=== PATIENT | male | born 1965 | race Caucasian/White ===

== ENCOUNTER 2020-02-29 13:09 | Inpatient (IN) | payer OTHER, SELFPAY ==
[~2020-02-29] VITALS: Ht 170.2 cm; Wt 91.2 kg
[2020-02-29 13:28] VITALS: Ht 170.2 cm; Wt 91.2 kg
--- NOTE | 2020-02-29 13:35 | NUR ---
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 AND CONGESTION. PT WAS COVID+. FEELING OF SOB AND DISUTUARATED AGAIN. PT WAS A/OX4, SPEAKS FULL SENTENCES, FOLLOWS COMMAND, DENIES PRESTON AND DIZZINES. PT AMBULATES AROUND IN STEADY GAIT.
[2020-02-29 14:48] LABS: CALCIUM 9.2 mg/dL (8.5-10.1); CARBON DIOXIDE 22.5 mmol/L (21-32); CHLORIDE SERUM 98 mmol/L (98-107); CREATININE SERUM 0.8 mg/dL (0.7-1.3); GFR1 > 60 mL/min; GLUCOSE SERUM 139 mg/dL (74-106); POTASSIUM SERUM 3.9 mmol/L (3.5-5.1); SODIUM SERUM 132 mmol/L (136-145)
[2020-02-29 14:53] LABS: ALKALINE PHOSPHATASE 89 U/L (46-116); ALT/SGPT 137 U/L (16-63); AST/SGOT 106 U/L (15-37); BILIRUBIN TOTAL 1.28 mg/dL (0.20-1.00)
[2020-02-29 14:55] LABS: ALBUMIN 2.6 g/dL (3.4-5.0); C REACTIVE PROTEIN 15.4 mg/dL (<=0.9); TOTAL PROTEIN, SERUM 8.5 g/dL (6.4-8.2)
[2020-02-29 15:07] LABS: BASOPHIL % 0.6 % (0-2); PLATELET COUNT 340 x10^3mcL (130-400); RED CELL DISTRIBUTION WIDTH 14.4 % (11.5-14.5)
--- NOTE | 2020-02-29 17:04 | NUR ---
BLOOD CULTURE DONE. ANTIBIOTICS STARTED.
--- NOTE | 2020-02-29 17:24 | NUR ---
PT IS VOMITTING. MD WAS NOTIFIED. ZOFRAN WAS ORDERED AND GIVEN IVP.
--- NOTE | 2020-02-29 19:03 | NUR ---
DR. GISELLE VYAS CALLED AND ADMITED PT TO TELE.
--- NOTE | 2020-02-29 19:06 | NUR ---
REPORT RECEIVED FROM PRISON TEACHER FOR CONTINUITY OF CARE. PATIENT IN STABLE CONDITION. NO DISTRESS NOTED.
--- NOTE | 2020-02-29 20:29 | NUR ---
PATIENT C/O NECK PAIN 09/13. WILL LET KNOW.
[2020-02-29] MEDS ORDERED: DULERA1 AR2 IH (21:12)
[2020-02-29 22:17] VITALS: BP 124/95
[2020-02-29 22:27] VITALS: BP 123/87
--- NOTE | 2020-02-29 22:30 | NUR ---
REC'D PT FROM ED VIA ETHEL ACCOMPANIED BY RN. PT ADM WITH CC OF SOB. CURRENTLY REPORT SOB ONLY UPON AMBULATION. DENIES RESP DISTRESS OR SOB. BREATHING EVEN/UNLABORED ON RA, SPO2 93%. PROD COUGH WITH MOD CLEAR SPUTUM. TELE 3. DENIES CP, DIZZINESS, OR PALPITATIONS. NO EDEMA NOTED. ABD SOFT/ROUND. C/O NAUSEA, NO EMESIS. VOIDING FREELY. AMBULATORY. SKIN INTACT. IV TO RAC, SITE WNL. GUARDS X2 AT BEDSIDE. PT REPORTS HEART BURN- TAKES OMEPRAZOLE FOR IT. ORIENTED TO DEVICES AND SURROUNDINGS. REPORT GIVEN TO MIGUEL A EDWARDS.
--- NOTE | 2020-03-01 05:27 | NUR ---
PATIENT SLEPT WELL AT NIGHT.PATIENT ALERT AND ORIENTED.SKIN WARM AND DRY TO TOUCH.RESPIRATION EVEN AND UNLABORED,NO RESPIRATORY DISTRESS.LUNGS DIMINISHED UPON AUSCULTATION.DENIES SOB BUT WITH EPISODES OF ABDOMINAL DISCOMFORT.PATIENT KEPT NPO SINCE MIDNIGHT FOR ABDOMINAL ULTRASOUND THIS MORNING,PATIENT VERBSLIZED UNDERSTANDING.PATIENT RESTING COMFORTABLY IN BED AT THIS TIME.
[2020-03-01 06:25] VITALS: BP 138/84
[2020-03-01 07:03] LABS: BASOPHIL % 0.5 % (0-2); PLATELET COUNT 248 x10^3mcL (130-400); RED CELL DISTRIBUTION WIDTH 14.5 % (11.5-14.5)
[2020-03-01 07:11] LABS: CALCIUM 8.8 mg/dL (8.5-10.1); CARBON DIOXIDE 27.5 mmol/L (21-32); CHLORIDE SERUM 99 mmol/L (98-107); CREATININE SERUM 0.7 mg/dL (0.7-1.3); GFR1 > 60 mL/min; GLUCOSE SERUM 92 mg/dL (74-106); POTASSIUM SERUM 3.8 mmol/L (3.5-5.1); SODIUM SERUM 134 mmol/L (136-145)
--- NOTE | 2020-03-01 07:25 | NUR ---
RECEIVED REPORT FROM CHUCKING MACHINE OPERATOR RN. PT IS AOX4, SITTING UP IN BED AND WATCHING TV. PT IS COMPLAINING THAT HE IS HUNGRY BUT EXPLAINED TO HIM THAT HE WILL HAVE FOOD AFTER THE ABD US IS DONE. NO C/O PAIN AT THIS TIME. PT IS ON RA AND SATING AT 93%. NO ACUTE DISTRESS NOTED. WILL ASSESS AND CONTINUE TO MONITOR THROUGHOUT THE SHIFT.
[2020-03-01 08:53] VITALS: BP 144/90
[2020-03-01 12:15] VITALS: BP 121/75
--- NOTE | 2020-03-01 15:20 | NUR ---
RECEIVED PT. FROM ANGELA (AGENCY RN) AT THIS TIME. PT. IS A/A/O X3. NO SOB, NO N/V NOTED. PT. DENIES ANY PAIN AT THIS TIME. CIM OFFICERS X2 SITTING AT THE DOOR WAY. IV SITE NOTED TO Grace DAILEY. PT. IS ON DROPLET ISOLATION FOR RULING OUT COVID-19. BED IN LOW POS., CALL LIGHT WITHIN REACH. SIDE RAILS UP X3.
[2020-03-01 17:32] VITALS: BP 133/78
--- NOTE | 2020-03-01 18:06 | NUR ---
NEW IV SITE RESTARTED AT L FA WITH GAUGE #20 DUE TO PT. C/O PAIN AT OLD IV SITE.
--- NOTE | 2020-03-01 18:45 | NUR ---
PT. IS BEING TRANSFERRED TO ROOM 201B AT THIS TIME. DROPLET ISOLATION DISCONTINUED PER DR. MONTILLA'S ORDER. CIM OFFICER AT BEDSIDE.
--- NOTE | 2020-03-01 19:30 | NUR ---
PATIENT RECEIVED. PATIENT IS RESTING IN BED. PATIENT IS CIM. NO SIGN OD RESP DISTRESS. O2 SAT 96% ON ROOM AIR. C/O PAIN 6/10 ACHY IN HIS NECK (SEE eMAR FOR PAIN ADMINISTRATION). PATIENT HAS GENERALIZED WEAKNESS. ACTIVE BOWEL SOUNDS. BED IN LOW POSITION AND CALL LIGHT WITHIN REACH. WILL REASSESS PAIN.
--- NOTE | 2020-03-01 19:45 | NUR ---
PATIENT C/O 6/10 ACHY NECK PAIN AND ADMINISTER NORCO 5/325. NO RESP DISTRESS NOTED. PATIENT IS RESTING IN BED. CMI OFFICERSX2 BY THE DOOR WAY.
[2020-03-01 20:27] VITALS: BP 120/72
--- NOTE | 2020-03-01 20:45 | NUR ---
PATIENT PAIN DECREASED /10. NO RESP DISTRESS IS NOTED. PATIENT IS RESTING IN BED. BED IN LOW POSITION AND CALL LIGHT WITHIN REACH.
--- NOTE | 2020-03-02 01:19 | NUR ---
PATIENT IS RESTING IN BED. DENIES SOB. DENIES CHEST PAIN. C/O ACHY PAIN AT NECK ADMINISTERED NORCO . O2 SAT 95% ON ROOM AIR. BED IN LOW POSITION AND CALL LIGHT WITHIN REACH. CIM OFFICERSX2 SITTING AT DOOR WAY. WILL REASSESS PAIN.
--- NOTE | 2020-03-02 02:09 | NUR ---
PT IS RESTING IN BED. NO SIGN OD RESP DISTRESS. NO FACIAL GRIMACING NOTED. CIM OFFICERSX1 SITTING AT DOOR WAY. CALL LIGHT WITHIN REACH AND BED IN LOW POSITION.
[2020-03-02 05:33] VITALS: BP 139/94
--- NOTE | 2020-03-02 05:57 | NUR ---
PATIENT IS RESTING IN BED CIM OFFICERX2 BY DOOR WAY. PATIENT EYES OPEN. NO SIGN OF DISTRESS. O2 SAT 94% ON ROOM AIR. PATIENT DENIES PAIN. PATIENT DENIES CHEST PAIN AND SOB. DENIES N/V/D. HEART RHTTHM IS NSR. BED IN LOW POSITION AND CALL LIGHT WITHIN REACH. WILL ENDOURS CARE TO AM NURSE.
[2020-03-02 06:57] LABS: BASOPHIL % 0.5 % (0-2); PLATELET COUNT 247 x10^3mcL (130-400)
[2020-03-02 07:20] LABS: CALCIUM 9.7 mg/dL (8.5-10.1); CARBON DIOXIDE 29.6 mmol/L (21-32); CHLORIDE SERUM 100 mmol/L (98-107); CREATININE SERUM 0.9 mg/dL (0.7-1.3); GFR1 > 60 mL/min; GLUCOSE SERUM 83 mg/dL (74-106); POTASSIUM SERUM 5.3 mmol/L (3.5-5.1); RED CELL DISTRIBUTION WIDTH 14.6 % (11.5-14.5); SODIUM SERUM 135 mmol/L (136-145)
--- NOTE | 2020-03-02 07:36 | NUR ---
RECIEVED PATIENT WITH BREATHING EVEN, UNLABORED, AND NO ACUTE RESP DISTRESS NOTED. ALERT AND ORIENTED, FOLLOW COMMANDS. TELE #3. AT ROOM AIR IV ACCESS TO LFA SALINE LOCK PATENT. DENIES PAIN AT THIS TIME. CALL LIGHT WITHIN REACH, BED AT LOWEST POSITION. WILL CONTINUE TO MONITOR
[2020-03-02 08:41] VITALS: BP 140/94
[2020-03-02 12:14] VITALS: BP 118/84
--- NOTE | 2020-03-02 12:14 | NUR ---
PT C/O NECK PAIN 09/13, NORCO GIVEN, AND REASSESS AT 1130 PAIN IMPROVE. RESTING IN BED. BREATHING EVEN, UNLABORED, NO ACUTE RESP DISTRESS NOTED. CALL LIGHT WITHIN REACH, BED AT LOWEST POSITION, WILL CONTINUE TO MONITOR.
[2020-03-02 16:59] VITALS: BP 123/73
--- NOTE | 2020-03-02 17:30 | NUR ---
C/O IV SITE BURNING AFTER AZITHROMYCIN 250ML/HR GIVEN, TITRATE TO 150ML/HR AND COLD PACK APPLIED TO IV SITE BUT PT STILL HAVING PAIN. STOP INFUSION AT THIS TIME. BREATHING EVEN, UNLABORED, NO JEREMIE RESP DISTRESS NOTED. CALL LIGHT WITHIN REACH, SAFETY MEASURE IN PLACE. WILL CONTINUE TO MONITOR
--- NOTE | 2020-03-02 19:15 | NUR ---
AWAKE AND ALERT, C/O NECK PAIN AND HEADACHE WHEN COUGHING. DENIES SOB, DIZZINESS, NO ACUTE RESP DISTRESS NOTED. ABLE TO TOLERATE DINNER. IV ACCESS TO LFA PATENT. PT STATES BURING AT IV SITE GETTING BETTER, RESTART AZITHROMYCIN. VS REMAIN STABLE. SAFETY MEASURE IN PLACE, CALL LIGHT WITHIN REACH, WILL BE ENDORSE TO PARIMUTUEL TICKET CASHIER NURSE.
--- NOTE | 2020-03-02 19:20 | NUR ---
NURSING CO-SIGN THE DOCUMENTATION ENTERED BY THE RN STEPHEN HAS BEEN REVIEWED. REVIEWED/CO-SIGNED BY: Josi Martin DOCUMENTATION DONE BY: MIRANDA HERNANDEZ
--- NOTE | 2020-03-02 19:23 | NUR ---
RECEIVED PT FROM DAY SHIFT NURSE. PT A/OX4. AWAKE WATCHING TV IN BED. ABLE TO MAKE NEEDS KNOWN NEEDS. SPEECH CLEAR. PT C/O HEAD AND NECK PAIN, WILL MEDICATE PER MAR. ON TELE#3 READING NSR. PT DENIES CHEST PAIN OR PRESSURE. PULSES PALPABLE. NO EDEMA NOTED. RR EVEN AND UNLABORED ON RA, PT DENIES SOB OR DIFFICULTY BREATHING. PT VOIDS FREELY. MILD GENERALIZED WEAKNESS. AMBULATORY. SKIN INTACT. IV TO LFA, PATENT AND INTACT. NO SIGNS OF INFILTRATION NOTED. CALL LIGHT WITHIN REACH. CLAUDIA SPEAR AT BEDSIDE. WILL CONTINUE TO MONITOR.
[2020-03-02 21:03] VITALS: BP 115/75
--- NOTE | 2020-03-02 22:28 | NUR ---
GAVE REPORT TO CRUZITO EDWARDS. WILL TRANSFER PT TO [facility].
--- NOTE | 2020-03-02 23:19 | NUR ---
Pt transferred to room 256B. Alert and responsive. Pt accompanied by 2 officers. Received pt in stable condition. Will continue to monitor pt.
[2020-03-03 05:47] VITALS: BP 119/84
--- NOTE | 2020-03-03 06:38 | NUR ---
Pt currently alert and responsive with 2 officers at bed side. Pt slept well with no changes in condition. Will continue to monitor and endorse care to oncoming shift RN.
[2020-03-03 07:00] LABS: BASOPHIL % 0.4 % (0-2); PLATELET COUNT 248 x10^3mcL (130-400); RED CELL DISTRIBUTION WIDTH 14.5 % (11.5-14.5)
[2020-03-03 07:24] LABS: CALCIUM 9.4 mg/dL (8.5-10.1); CARBON DIOXIDE 27.8 mmol/L (21-32); CHLORIDE SERUM 97 mmol/L (98-107); CREATININE SERUM 0.8 mg/dL (0.7-1.3); GFR1 > 60 mL/min; GLUCOSE SERUM 86 mg/dL (74-106); POTASSIUM SERUM 4.6 mmol/L (3.5-5.1); SODIUM SERUM 131 mmol/L (136-145)
--- NOTE | 2020-03-03 08:15 | NUR ---
RECEIVED IN BED ASSESSMENT COMPLETE AT THIS TIME CONDITION GUARDED WILL CONTINUEN TO MONITOR AND ASSESS CALLLIGHT IN REACH NO DISTRESS NOTED AT THIS TIME
[2020-03-03 08:25] VITALS: BP 120/85
[2020-03-03 12:23] VITALS: BP 112/72
--- NOTE | 2020-03-03 13:14 | NUR ---
CODITION REMAINS GUARDED NO ACUTE DISTRESS AT THIS TIME O2 AT 3L/MIN VIA NASAL CANNULA CALL LIGHT WITHIN REACH WILL CONTINUE TO MONITOR AND ASSESS
--- NOTE | 2020-03-03 15:43 | NUR ---
ALL NEEDS ANTICIPATED AND MET CONDITION GUARDED CALL LIGHT IN REACH WILL CONTINUE TO MONITOR AND ASSESS
[2020-03-03 16:50] VITALS: BP 109/76
[2020-03-03 19:40] VITALS: BP 103/68
--- NOTE | 2020-03-03 20:00 | NUR ---
RECEIVED PT AA&O. INNMATE, 2 GUARDS AT BEDSIDE. SHACKLED TO LEFT ANKLE. SKIN WARM AND DRY, SLIGHTLY PINK UNDER CUFF. PULLED SOCK UP UNDR CUFF. NO C/O PAIN. IV PATENT AND SALINE LOCKED. AMBUALTORY. OXYGEN 2L VIA NC. NO RESPIRATORY DISTRESS NOTED
[2020-03-04 04:47] VITALS: BP 94/66
[2020-03-04 07:16] LABS: CALCIUM 8.9 mg/dL (8.5-10.1); CARBON DIOXIDE 28.2 mmol/L (21-32); CHLORIDE SERUM 98 mmol/L (98-107); CREATININE SERUM 0.8 mg/dL (0.7-1.3); GFR1 > 60 mL/min; GLUCOSE SERUM 108 mg/dL (74-106); POTASSIUM SERUM 4.5 mmol/L (3.5-5.1); SODIUM SERUM 133 mmol/L (136-145)
[2020-03-04 07:23] LABS: BASOPHIL % 0.4 % (0-2); PLATELET COUNT 266 x10^3mcL (130-400); RED CELL DISTRIBUTION WIDTH 13.7 % (11.5-14.5)
--- NOTE | 2020-03-04 07:30 | NUR ---
RECEIVED REPORT FROM FREELANCE COURT REPORTER NURSE. PT IS A/OX4. TELE #3 NSR. 94. DENIES CP AT THIS TIME. VS STABLE. PT C/O SOB ON EXERSION. PT IS ON 1.5 LNC. O2 SAT 98%. LUNG SOUNDS: CRACKLES IN LOWER LOBES BILATERALLY. PT REPORTS INTERMITTEN COUGH WITH SCAN AMOUNT OF SPUTUM. IV TO LFA, PATENT, SL.
--- NOTE | 2020-03-04 08:14 | NUR ---
PT REQUEST XOPENEX PRN FOR SOB. RT IS NOTIFIED. PT IS ON 1.5LNC. O2 SAT 98%.
[2020-03-04 08:40] VITALS: BP 110/73
[2020-03-04 12:53] VITALS: BP 120/73
[2020-03-04 16:47] VITALS: BP 120/70
--- NOTE | 2020-03-04 17:33 | NUR ---
PT IS A/OX4. TELE#3. NSR [address] DENIES CP AT THIS TIME. PT IS ON 2LNC. O2 SAT 95%. RECEIVED XOPENEX TREATMENT FOR SOB PER EMAR. PRESTON WAS UNDER CONTROL BY NORCO PER EMAR. VS STABLE. IV TO LFA, PATENT, SL. RECEIVED ANTIBIOTIC THERAPY: ROCEPHIN AND AZYTHROMYCIN PER EMAR. PT IS INMATE 1:1 OBSERVATION. ALL PROTOCOLS IN PLACE. WILL ENDORSE CARE TO ONCOMING NURSE.
--- NOTE | 2020-03-04 19:58 | NUR ---
RECEIVED REPORT FROM OUTGOING NURSE.PATIENT IN BED.AWAKE,ALERT,AND ORIENTED .ON OXYGEN AT 2L/MIN VIA N/C FOR SOB WITH GOOD RELIEF.O2 SAT. 95% AWNING HANGER HELPER.VOIDED FREELY CONTINENTLY,NO HEMATURIA,NO DYSURIA.DENIES PAIN AND DISCOMFORT.CALL LIGHT WITHIN REACH.KEPT COMFORTABLE.
[2020-03-04 21:32] VITALS: BP 113/69
--- NOTE | 2020-03-05 05:18 | NUR ---
PATIENT SLEPT WELL AT NIGHT,REMAINED ON OXYGEN AT 2L/MIN VIA N/C FOR SOB WITH GOOD RELIEF WITH O2 SAT.97%.HAD EPISODES OF C/O NECK PAIN AND REQUESTED FOR PAIN MED AND GIVEN WITH GOOD RELIEF.CALL LIGHT WITHIN REACH.
[2020-03-05 05:34] VITALS: BP 115/72
--- NOTE | 2020-03-05 07:30 | NUR ---
RECEIVED REPORT FROM CHIEF WHARFINGER NURSE. PT IS A/OX4. TELE#3. NSR 95. DENIES CP AT THIS TIME. VS STABLE. PT IS ON 1.5LNC. O2 SAT 98%. PT HAS PRODUCTIVE COUGH. LUNG SOUNDS: LOWER LOBES CRACKLES BILATERALLY. PT C/O OF NECK PAIN AND PRESTON. RECEIVES NORCO PRN PER EMAR. IV TO LFA, PATENT, SL.
[2020-03-05 07:39] LABS: CALCIUM 8.9 mg/dL (8.5-10.1); CARBON DIOXIDE 32.1 mmol/L (21-32); CHLORIDE SERUM 100 mmol/L (98-107); CREATININE SERUM 0.7 mg/dL (0.7-1.3); GFR1 > 60 mL/min; GLUCOSE SERUM 88 mg/dL (74-106); POTASSIUM SERUM 4.4 mmol/L (3.5-5.1); SODIUM SERUM 136 mmol/L (136-145)
[2020-03-05 08:16] LABS: BASOPHIL % 0.6 % (0-2); PLATELET COUNT 243 x10^3mcL (130-400)
[2020-03-05 08:26] LABS: RED CELL DISTRIBUTION WIDTH 14.6 % (11.5-14.5)
[2020-03-05 08:37] VITALS: BP 105/66
[2020-03-05 12:28] VITALS: BP 112/73
--- NOTE | 2020-03-05 17:00 | NUR ---
RECEIVED LAB RESULT ON PROCALCITONIN 0.12. CALL DR VYAS AND MADE HIM AWARE.
[2020-03-05 17:13] VITALS: BP 100/79
--- NOTE | 2020-03-05 18:19 | NUR ---
PT IS A/OX4. TELE#3. DENIES CP AT THIS TIME. PT IS ON 1.5LNC. O2 SAT 97%. PT GETS SOB ON ACTIVITY. XOPENEX GIVEN PER EMAR BY RT. PT RECEIVED ROCEPHIN AND AZITHROMYCIN PER EMAR TODAY. IV TO LFA, PATENT, SL. WILL ENDORSE CARE TO ONCOMING NURSE.
--- NOTE | 2020-03-05 20:10 | NUR ---
PATIENT IS A/O X4. NSR. DENIES CP AND CHEST PRESSURE. PULSES PALPABLE AND NO EDEMA NOTED. ON 1.5 L NC. DENIES SOB AT THIS TIME. LOWER LOBES CRACKLES. LAST BM 03/03/20. NORMOACTIVE BOWEL SOUNDS X4. VOIDS IN URINAL. AMBULATORY. SKIN INATCT. DENIES ANY PAIN AT THIS TIME. LFA 20 G. CDI. BED IN LOWEST AND LOCKED POSITION. CALL LIGHT WITHIN REACH. WILL CONT TO MONITOR.
[2020-03-05 20:43] VITALS: BP 120/83
--- NOTE | 2020-03-05 23:20 | NUR ---
PATIENT C/O PRESTON AND NECK PAIN WHEN HE CONTINUOUSLY COUGHS. GAVE NORCO PRESCRIBED FOR 10/13 PAIN. F/U WITH EFFECT OF MED 1 HOUR LATER AND PATIENT STATES THAT PAIN LEVEL HAS DECREASED. 06/13.
--- NOTE | 2020-03-06 01:00 | NUR ---
PATIENT RESTING IN BED WITH EYES CLOSED. BREATHING E/U. NO DISTRESS NOTED. WILL CONT TO MONITOR.
[2020-03-06 06:11] VITALS: BP 111/75
--- NOTE | 2020-03-06 07:20 | NUR ---
PATIENT IS STABLE AT THIS TIME. DENIES ANY S/S. ENDORSED CARE TO AM NURSE.
--- NOTE | 2020-03-06 07:30 | NUR ---
PT REPORT RECEIVED FROM CLIENT SERVICES MANAGER RN. PT WAS AWAKE, A/Ox4. DENIES ANY PAIN AND SOB THIS TIME. PT STATES HE COUGHS OCCASIONALLY AND HAS PRODUCTIVE SPUTUM. OLD SPUTUM IS CLEAR WITH RED TINGE NOTED. PT STATES HE AMBULATED WITH PT YESTERDAY BUT HAD TO STOP EARLY BECAUSE HE STARTED FEELING DIZZE. SMALL BLISTER NOTED ON L INDEX FINGER WHERE O2 MONITOR WAS AT. LFA 20g FLUSHES WELL. SAFETY PRECAUTIONS IN PLACE. CALL LIGHT WITHIN REACH. WILL CONTINUE TO MONITOR.
[2020-03-06 07:41] LABS: CALCIUM 9.4 mg/dL (8.5-10.1); CARBON DIOXIDE 31.6 mmol/L (21-32); CHLORIDE SERUM 99 mmol/L (98-107); CREATININE SERUM 0.8 mg/dL (0.7-1.3); GFR1 > 60 mL/min; GLUCOSE SERUM 98 mg/dL (74-106); POTASSIUM SERUM 5.3 mmol/L (3.5-5.1); SODIUM SERUM 136 mmol/L (136-145)
[2020-03-06 09:12] LABS: BASOPHIL % 0.3 % (0-2); PLATELET COUNT 271 x10^3mcL (130-400); RED CELL DISTRIBUTION WIDTH 14.1 % (11.5-14.5)
[2020-03-06 09:14] VITALS: BP 119/81
--- NOTE | 2020-03-06 09:30 | NUR ---
RECIEVED A CALL FROM CASE MANA[facility]. THEY ARE WORKING ON PT's 5150 AND LOOKING FOR ANOTHER FACILITY FOR THE PT. WILL CALL THEM BACK WHEN PT IS MEDICALLY CLEARED BY DOCTOR.
--- NOTE | 2020-03-06 10:14 | NUR ---
SPOKE TO OVER THE PHONE AND REPORTED PT POTASSIUM WAS 5.3. HE STATED THAT HE WILL ADD A NEW MEDICATION TO LOWER POTASSIUM LEVEL.
--- NOTE | 2020-03-06 11:45 | NUR ---
SPOKE TO DR. CLAIRE OVER THE PHONE ABOUT PT ASKING FOR MILK OF MAGNESIA. PT STATED LAST BM WAS 3 DAYS AGO AND SAYS SHE IS CHRONICALLY CONSTIPATED. STATED HE WILL REVIEW THE CHART AND ORDER SOMETHING.
[2020-03-06 12:42] VITALS: BP 112/78
--- NOTE | 2020-03-06 13:00 | NUR ---
PT IS AWAKE, RELAXED. DENIES ANY PAIN AND SOB. HAS CALL LIGHT WITHIN REACH AND NO REQUESTS OR QUESTIONS FOR NOW. WILL CONTINUE TO MONITOR.
--- NOTE | 2020-03-06 16:00 | NUR ---
PT IS AWAKE, ALERT. STABLE. NO PAIN AND SOB. CALL LIGHT WITHIN REACH. WILL CONTINUE TO MONITOR.
[2020-03-06 16:44] VITALS: BP 120/80
--- NOTE | 2020-03-06 18:00 | NUR ---
NEW IV ON RIGHT HAND 22G. DISCONTINUED LEFT AC IV BECAUSE OF PAIN ON SITE, INTACT. PT DENIES ANY PAIN BESIDES THE PAIN ON OLD IV SITE. PT DENIES ANY TROUBLE BREATHING THIS TIME. 2 CIM OFFICERS STILL PRESENT BY BEDSIDE. SAFETY PRECAUTIONS IN PLACE. CALL LIGHT WITHIN REACH. WILL ENDORSE CARE TO ICE RINK ATTENDANT RN.
--- NOTE | 2020-03-06 19:00 | NUR ---
PATIENT RECEIVED. RESTING IN BED. O2 95% ON 1.5 NC. DENIES CHEST PAIN. DENIES SOB. PATIENT DENIES PAIN AND DISCOMFORT. A&OX4 TO PERSON, LOCATION, AND SITUATION. HR IS 98. PATIENT STATED HE BECOMES SOB WHILE AMBULATING. CIM OFFICERSX2 BY THE BEDSIDE. BED IN LOW POSITION AND CALL LIGHT WITHIN REACH.
[2020-03-06 20:34] VITALS: BP 112/76
--- NOTE | 2020-03-07 01:36 | NUR ---
PATIENT IS RESTING IN BED. EYES CLOSED. NO RESP DISTRESS. O2 96% ON 1.5 NC. CIM OFFICERSX2 AT THE BEDSIDE. BED IN LOW POSITION AND CALL LIGHT WITHIN REACH.
[2020-03-07 05:42] VITALS: BP 126/89
--- NOTE | 2020-03-07 06:15 | NUR ---
PATIENT IS RESTING IN BED. PATIENT DENIES PAIN AND DISCOMFORT. CIM OFFICERSX2 BY THE BEDSIDE. O2 95% ON 1.5L NC. DENIES SOB, HEADACHE, AND CHEST PAIN. NO DISTRESS NOTED. BED IN LOW POSITION AND CALL LIGHT WITHIN REACH. WILL REPORT TO AM NURSE.
[2020-03-07 07:10] LABS: CALCIUM 9.6 mg/dL (8.5-10.1); CARBON DIOXIDE 34.4 mmol/L (21-32); CHLORIDE SERUM 101 mmol/L (98-107); CREATININE SERUM 0.8 mg/dL (0.7-1.3); GFR1 > 60 mL/min; GLUCOSE SERUM 95 mg/dL (74-106); POTASSIUM SERUM 5.2 mmol/L (3.5-5.1); SODIUM SERUM 140 mmol/L (136-145)
[2020-03-07 07:19] LABS: BASOPHIL % 0.6 % (0-2); PLATELET COUNT 255 x10^3mcL (130-400)
[2020-03-07 07:38] LABS: RED CELL DISTRIBUTION WIDTH 14.8 % (11.5-14.5)
--- NOTE | 2020-03-07 08:00 | NUR ---
PT REMAINS IN BED BREATHING E/U TO 1.5L O2 VIA NC. FINE CRACKLES UPON ASCULTATION. TELE# 3 PRESENTING WITH SR. BOWEL SOUNDS NORMOACTIVE, ABD SOFT NON-TENDER DENIES N/V. APPEARS TO HAVE GENARLIZED WEAKNESS. SKIN WARM DRY AND INTACT 22Giv R-HAND CDI. BED IN LOWEST POSITION, CALL LIGHT IN REACH WILL CONTINUE TO MONITOR.
[2020-03-07 08:25] VITALS: BP 120/80
[2020-03-07 12:11] VITALS: BP 108/73
[2020-03-07 16:29] VITALS: BP 111/79
--- NOTE | 2020-03-07 18:53 | NUR ---
PT REMAINS IN BED BREATHING E/U TO 1L O2 VIA NC. PT IS ASLEEP. TELE#3 PRESENTING WITH SR. 22G IV R-HAND INFUSING WELL WITH OUT ISSUE. BED IN LOWEST POSITION, CALL LIGHT IN REACH, WILL ENDORSE TO LIFE SKILLS INSTRUCTOR NURSE.
[2020-03-07 20:24] VITALS: BP 100/66
--- NOTE | 2020-03-07 23:15 | NUR ---
PT RECEIVED FROM AM NURSE. A/O X4, SPEECH CLEAR, ABLE TO MAKE NEEDS KNOWN. NO ACUTE RESP DISTRESS NOTED, BREATHING EVEN AND UNLABORED. DENIES CP/PRESSURE AT THIS TIME, ST ON TELE#3 HR:103. PULSES PALPABLE. BS NORMOACTIVE. VOIDS FREELY. GENERALIZED WEAKNESS, AMBULATES W/ ASSISTANCE. SKIN INTACT. IV TO R HAND PATENT AND INTACT. CIM, GUARD AT BEDSIDE. ALL SAFETY PRECAUTIONS IN PLACE. WILL CONT TO MONITOR.
[2020-03-08 05:35] VITALS: BP 117/80
--- NOTE | 2020-03-08 06:50 | NUR ---
PT RESTING IN BED. NO ACUTE RESP DISTRESS NOTED, BREATHING EVEN AND UNLABORED. DENIES CP/PRESSURE AT THIS TIME. ALL PT NEEDS MET OVERNIGHT. ALL SAFETY PRECAUTIONS IN PLACE. WILL ENDORSE CARE TO ONCOMING NURSE.
[2020-03-08 07:17] LABS: BASOPHIL % 0.6 % (0-2); PLATELET COUNT 247 x10^3mcL (130-400)
[2020-03-08 07:22] LABS: CALCIUM 8.8 mg/dL (8.5-10.1); CARBON DIOXIDE 29.4 mmol/L (21-32); CHLORIDE SERUM 100 mmol/L (98-107); CREATININE SERUM 0.8 mg/dL (0.7-1.3); GFR1 > 60 mL/min; GLUCOSE SERUM 96 mg/dL (74-106); SODIUM SERUM 132 mmol/L (136-145)
[2020-03-08 07:30] LABS: RED CELL DISTRIBUTION WIDTH 14.6 % (11.5-14.5)
--- NOTE | 2020-03-08 07:45 | NUR ---
PT REMAINS IN BED BREATHING E/U TO RA. BREATHING TREATMENT GIVEN BY RT SPO2: 98%,BILATERAL CRACKLES IN LUNGS. NO ACUTE RESPIRATORY DISTRESS NOTED. TELE#3 PRESENTING WITH SR. 22G IV CDI. BED IN LOWEST POSTION, CALL LIGHT IN REACH WILL CONT TO MONITOR.
[2020-03-08 08:42] VITALS: BP 120/74
[2020-03-08 12:14] VITALS: BP 110/75
--- NOTE | 2020-03-08 12:42 | NUR ---
PT REMAINS IN BED BREATHING E/U TO RA.TELE# 3 PRESENTING WITH SR. NO RESP DISTRESS , NO ACUTE PAIN AT THIS TIME. BED IN LOWET POSITON, CALL LIGHT IN REACH, WILL CONTINUE TO MONITOR
[2020-03-08 12:54] VITALS: BP 110/75
[2020-03-08 13:01] VITALS: BP 110/75
[2020-03-08] MEDS ORDERED: ROC1I IV (13:06)
--- NOTE | 2020-03-08 14:18 | NUR ---
PT DISCHARGED .PACKET REVIEWED, RX MEDICATIONS AND INSTRUCTIONS GIVEN TO PATIENT AND [facility] TRANSPORT STAFF. PT VERBALIZED UNDERSTANDING OF INSTRCUTIONS. PT AAOX4. RESP E/U ,VS STABLE, DENIES PAIN AT THIS TIME. 22G IV R-HAND IV, IV DRY, PATENT AND INTACT. TELE MONITOR CLEANED AND RETURNED TO [place] [facility]. ESCORED BY [facility] AND [facility] TRANSPORT STAFF VIA [facility], WITH NO ACUTE INCIDENTS.
== END 2020-03-08 14:18 | disposition other institution (70) | DRG 177 ==
LOC: ED 13:09 → DU 19:03 → MU 03-01 18:30 → DU 03-02 22:01
PROVIDERS: Emergency Medicine; ADMIT Internal Medicine; ATTEND Internal Medicine
DX: U07.1 COVID-19 (principal); J12.89 Other viral pneumonia; J96.01 Acute respiratory failure with hypoxia; J44.0 Chronic obstructive pulmonary disease with (acute) lower respiratory infection; J44.1 Chronic obstructive pulmonary disease with (acute) exacerbation; Z91.010 Allergy to peanuts
CPT/HCPCS: 36600; 83880; 85378; 97112-GP; 97116-GP; 97530-GP; G0378; J0456; J0696; J1650; J2270; J2405; J2550; J3535; J7040; J7050; Q9967; U0003